=== PATIENT | female | born 1955 | race Caucasian/White ===

== ENCOUNTER 2017-07-07 11:13 | Emergency (ER) | payer MEDICAID ==
[2017-07-07] MEDS ORDERED: Ciprofloxacin 0.3% Ophth Soln 2.5 ML Bottle ONE (11:30)
--- NOTE | 2017-07-07 12:30 | EDM.PDOC ---
ED HPI GENERAL MEDICAL PROBLEM - General Time Seen by Provider: 07/07/17 11:30 Source of Information: Reports: Patient History Limitations: Reports: No Limitations - History of Present Illness INITIAL COMMENTS - FREE TEXT/NARRATIVE: According to patient she was working outside and it was very windy and [place]. Something fell in her left eye last night she rubbed it. The eye was irritated and watering all night. But when she woke up today, could not open her left eye , and her eyelid were shut thigh. did have some pain in the eye, and her left eye cannot tolerate bright light. No halo around the lights. No blurry vision. No nausea or vomiting. no redness in the eye. No other complaints Onset Date: 07/06/17 Onset Time: 17:00 Duration: Getting Worse Location: Reports: Other (left eye) Quality: Reports: Ache Severity: Moderate Improves with: Reports: None Worsens with: Reports: None Associated Symptoms: Denies: Confusion, Chest Pain, Fever/Chills, Headaches, Nausea/Vomiting, Rash, Seizure ED ROS GENERAL - Review of Systems Review Of Systems: See Below Constitutional: Denies: Fever, Chills HEENT: Reports: Eye Discharge, Eye Pain. Denies: Rhinitis, Sinus Problem, Throat Pain, Throat Swelling Respiratory: Denies: Cough, Sputum Cardiovascular: Denies: Chest Pain, Lightheadedness GI/Abdominal: Denies: Abdominal Pain, Nausea, Vomiting : Denies: Dysuria, Flank Pain Skin: Denies: Bruising, Pruritis, Rash ED EXAM, GENERAL - Physical Exam Exam: See Below Exam Limited By: No Limitations General Appearance: Alert, WD/WN, Mild Distress Eye Exam: Left Eye: Corneal Abrasion (There is blepharospasm. On fluroscein exam there is corneal abrasion over the lateral aspect of the cornea.), Bilateral Eye: EOMI, PERRL Ears: Normal External Exam, Normal Canal, Hearing Grossly Normal, Normal TMs Ear Exam: Bilateral Ear: Auricle Normal, Canal Normal, TM normal Nose: Normal Inspection, Normal Mucosa, No Blood Throat/Mouth: Normal Inspection, Normal Lips, Normal Teeth, Normal Gums, Normal Oropharynx, Normal Voice, No Airway Compromise Head: Atraumatic, Normocephalic Neck: Normal Inspection, Supple, Non-Tender, Full Range of Motion Respiratory/Chest: No Respiratory Distress, Lungs Clear, Normal Breath Sounds, No Accessory Muscle Use, Chest Non-Tender Cardiovascular: Normal Peripheral Pulses, Regular Rate, Rhythm, No Edema, No Gallop, No JVD, No Murmur, No Rub Course - Vital Signs Text/Narrative:: Pt reassured that she has developed a small superficial corneal abrasion secondary to which she has left eye pain, increased tearing and blepharospasm. She rausch not have blurry vision. I have started her cipro eye drops to use 2 drops every 2hrs. Avoid rubbing the eye. Also wearing dark glasses when outdoor. F/U in the emergency tomorrow for recheck. Departure - Departure Time of Disposition: 12:30 Disposition: Home, Self-Care 01 Condition: Fair Clinical Impression: Corneal abrasion, left - Discharge Information Instructions: Ciprofloxacin eye solution, Corneal Abrasion Additional Instructions: Use cipro eye drops every 2 hours. Come in tomorrow morning (Sun. 07/07) to have eye re-evaluated. Do not rub your eye. Wear dark sunglasses. - Problem List & Annotations (1) Corneal abrasion, left SNOMED Code(s): 04204609 Code(s): S05.02XA - INJ CONJUNCTIVA AND CORNEAL ABRASION W/O FB, LEFT EYE, INIT Status: Acute Current Visit: Yes - Problem List Review Problem List Initiated/Reviewed/Updated: Yes - Assessment/Plan Assessment:: Left corneal abrasion Plan: Pt reassured that she has developed a small superficial corneal abrasion secondary to which she has left eye pain, increased tearing and blepharospasm. She rausch not have blurry vision. I have started her cipro eye drops to use 2 drops every 2hrs. Avoid rubbing the eye. Also wearing dark glasses when outdoor. F/U in the emergency tomorrow for recheck.
== END 2017-07-07 12:20 | disposition home or self-care (01) ==
LOC: MERGE 11:13 → LB.ED 11:13
DX: S05.02XA Injury of conjunctiva and corneal abrasion without foreign body, left eye, initial encounter (principal); X58.XXXA Exposure to other specified factors, initial encounter
CPT/HCPCS: 99283; A9270

== ENCOUNTER 2017-07-08 11:19 | Emergency (ER) | payer MEDICAID ==
--- NOTE | 2017-07-08 11:29 | EDM.PDOC ---
ED HPI GENERAL MEDICAL PROBLEM - General Chief Complaint: General Stated Complaint: corneal abrasion recheck Time Seen by Provider: 07/08/17 11:20 Source of Information: Reports: Patient History Limitations: Reports: No Limitations - History of Present Illness INITIAL COMMENTS - FREE TEXT/NARRATIVE: 61 year old female seen yesterday for left eye corneal abrasion. She is here for recheck. Pt claims that she can open her eyes today and there is no pain in the eye. Also she has not been tearing in the eye any more, does have some discharge in the eye. No visual disturbances. Has been using cipro eye drops. Duration: Improving Location: Reports: Other (left eye) Severity: Mild Improves with: Reports: None Worsens with: Reports: None Associated Symptoms: Denies: Confusion, Chest Pain, Cough, Fever/Chills, Nausea/ Vomiting, Rash, Seizure, Shortness of Breath - Related Data Allergies Allergy/AdvReac Type Severity Reaction Status Date / Time Penicillins Allergy Other Verified 07/07/17 13:57 Home Meds: Home Meds NK [No Known Home Meds] 07/07/17 [History] ED ROS GENERAL - Review of Systems Review Of Systems: See Below Constitutional: Denies: Fever, Chills HEENT: Reports: Eye Discharge. Denies: Eye Pain, Rhinitis, Sinus Problem Respiratory: Denies: Cough, Sputum Cardiovascular: Denies: Lightheadedness GI/Abdominal: Denies: Nausea, Vomiting Skin: Denies: Bruising, Pruritis, Rash ED EXAM, GENERAL - Physical Exam Exam: See Below Exam Limited By: No Limitations General Appearance: Alert, WD/WN, No Apparent Distress Eye Exam: Left Eye: Corneal Abrasion (On fluroscein exam today the abrasion has resolved, there is a very faint uptake of the fluroscein in less than 10% of the area compared to yesterday. No blepharospasm or conjunctival congestion) Course - Vital Signs Text/Narrative:: Pt's clinical symptoms have significantly improved. Her fluroscein eye exam shows resolving left corneal abrasion. I have advised patient to use Cipro eye drops every 4 hrs to left eye for 4 more days. Sun protection advised . Avoid rubbing the eyes.Eye care discussed. Followup in clinic with her PCP if symptoms worsen. Departure - Departure Time of Disposition: 11:30 Disposition: Home, Self-Care 01 Condition: Good Clinical Impression: Corneal abrasion, left - Discharge Information Additional Instructions: I have advised patient to use Cipro eye drops every 4 hrs to left eye for 4 more days. Sun protection advised . Avoid rubbing the eyes.Eye care discussed. Followup in clinic with her PCP if symptoms worsen. - Problem List & Annotations (1) Corneal abrasion, left SNOMED Code(s): 31653769 Code(s): S05.02XA - INJ CONJUNCTIVA AND CORNEAL ABRASION W/O FB, LEFT EYE, INIT Status: Acute - Problem List Review Problem List Initiated/Reviewed/Updated: Yes - Assessment/Plan Assessment:: Improving left corneal abrasion Plan: I have advised patient to use Cipro eye drops every 4 hrs to left eye for 4 more days. Sun protection advised . Avoid rubbing the eyes. Eye care discussed. Followup in clinic with her PCP if symptoms worsen.
== END 2017-07-08 11:20 | disposition home or self-care (01) ==
LOC: MERGE 11:19 → LB.ED 11:19
DX: S05.02XA Injury of conjunctiva and corneal abrasion without foreign body, left eye, initial encounter (principal); Z88.0 Allergy status to penicillin; X58.XXXA Exposure to other specified factors, initial encounter
CPT/HCPCS: 99282